=== PATIENT | female | born 1955 | race Caucasian/White ===

== ENCOUNTER 2017-06-18 03:55 | Inpatient (IN) | payer OTHER ==
[2017-06-18] VITALS (7 sets, daily range): BP systolic 126–181; BP diastolic 42–76; BMI 21.0
[~2017-06-18] VITALS: Ht 149.9 cm; Wt 54.5 kg
--- NOTE | ~2017-06-18 | OP ---
PATIENT NAME: DEVIN FERNANDEZ MEDICAL RECORD: [id number] :51 LOCATION:[facility] ADMISSION DATE:06/18/17 SURGEON: AARON CASAREZ MD DATE OF OPERATION: 06/21/2017 SURGEON: Aaron Casarez MD MEDICAL OFFICE WORKER: TENZIN Zapata OPERATION PERFORMED: Coronary artery bypass graft times 3 (left internal mammary to LAD, reverse saphenous vein from aorta to ramus intermedius and from aorta to obtuse marginal). PREOPERATIVE DIAGNOSES: Coronary artery disease with acute coronary syndrome and unstable angina, atrial fibrillation. POSTOPERATIVE DIAGNOSES: Coronary artery disease with acute coronary syndrome and unstable angina, atrial fibrillation. ANESTHESIA: General endotracheal anesthesia. ESTIMATED BLOOD LOSS: Total cardiopulmonary bypass with 2 packed red blood cells due to preoperative anemia and Cell Saver re-transfusion. COMPLICATIONS: ST elevation and hypotension after closing the chest, after the chest was reopened responded with epinephrine with hypertension, no further recurrence and ST segments returned to normal. All grafts were normal. Doppler signals were normal in the grafts. A chest tube was repositioned in case it was causing any obstruction. SPECIMENS: None. CONDITION: Stable. DISPOSITION: ICU. OPERATIVE FINDINGS: 1. Good quality greater saphenous vein harvested from the left leg from mid calf upwardly using bridging incisions. 2. Small but normal internal mammary for the ladies's size about a 1.5-2 mm mammary which was a good match for 1.5 mm LAD with good Doppler flow after anastomosis and after separation from cardiopulmonary bypass after reopening the chest. 3. The ramus intermedius was a 1.5 mm vessel. 4. The obtuse marginal was a 1.5 mm vessel. 5. The patient had a small but normal appearing heart with good contractility. Transesophageal echocardiography was normal. OPERATIVE INDICATION: Patient with a history of dyspnea on exertion, had atrial fibrillation following esophagoscopy to remove impacted food and underwent cardiac catheterization with severe multivessel coronary artery disease and a left dominant system. DESCRIPTION OF PROCEDURE: The patient was brought to the operating suite. General anesthesia was obtained. The patient was prepped and draped. First, OPERATIVE REPORT [id number] DEVIN FERNANDEZ greater saphenous vein was harvested from the left thigh and upper leg. Utilizing bridging incision, side branches were clipped, vessel was removed, perfused and hemostasis was ensured. The leg was then closed in 2 layers. Median sternotomy incision was made. Subcutaneous tissue was divided with electrocautery. Sternum was divided with a saw. The left hemisternum was elevated. Left pleural cavity was entered. Left internal mammary artery and vein were taken down as a pedicle graft. Sternal retractor was placed. Pericardium was opened. Heparin was given. The aorta was cannulated between concentric pursestrings. Dual-stage venous cannula was inserted. The internal mammary was clipped distally, made ready for anastomosis. The patient was placed on cardiopulmonary bypass after activated clotting time was appropriately elevated. The sites for distal anastomosis were selected. A cross-clamp was placed. Cardioplegia was given antegrade and this was repeated at 10-15 minute intervals including down the completed vein grafts. Distal anastomosis and proximal anastomoses were performed in standard technique. Aortic root was vented by removing the cross-clamp, tying the proximal anastomosis, deairing the vein graft and restoring flow. Proximal and distal anastomotic sites were inspected for leak. Good Doppler signals were noted. The patient was fully rewarmed, weaned off cardiopulmonary bypass and was stable. The patient was decannulated. Aortic cannulation site was oversewn with a pledgeted suture. Thorough irrigation was undertaken. All grafts lay appropriately. Protamine was given. Drains were placed with #1 Duy drain and one 28-Lao chest tube in the mediastinum and one Duy drain in the left pleural cavity. Pericardial fat was loosely reapproximated. Left chest was evacuated and irrigated. The sternum was closed with wires. After the chest was closed, the patient had some hypotension and ST elevation. Therefore, the chest was reopened. Pericardial fat sutures were removed. The grafts lay appropriately. Doppler signals were excellent with good diastolic flow and no evidence of impingement or twisting of the graft. STs returned to normal after epinephrine and some hypertension. The chest tube was repositioned slightly inferiorly. Ventricular pacing wires were placed. The pericardial fat was again approximated. The sternum was closed without difficulty. Fascia was closed. Subcutaneous tissue was closed. Skin was closed. Dressing was placed and the patient taken to ICU in stable condition. TRANSINT:[id number] Voice Confirmation ID: [id number] DOCUMENT ID: [id number] AARON CASAREZ MD at 0619 CC: SHANTHI COLLADO MD [id number] DICTATION DATE: 06/21/17 190 SLIDING JOINT MAKER: 06/22/177 ADM IN [facility] [address] [id number]
--- NOTE | ~2017-06-18 | HEMODYNAMI ---
PATIENT:DEVIN FERNANDEZ MEDICAL RECORD: [id number] : 51 LOCATION:[facility] ADMISSION DATE: 06/18/17 Generatedon:06/19/20179:43 Patient name: DEVIN FERNANDEZ Patient #: [id number] SSN: DO B: 1955 Date of study: 06/19/2017 Page: Of Hemodynamic Procedure Report Patient Data Patient Demographics Procedure consent was obtained First Name: DEVIN Gender: Female Last Name: REBECCA : 1955 Middle Initial: E Age: 62 year(s) Patient #: [id number] Race: Unknown Additional ID: [id number] Contact details [address]: [address] [place] [address] State: [place] City: [place] Zip code: [address] Past Medical History Allergies: No known allergies Admission Admission Data Admission Date: 06/18/2017 Admission Time: 3:55 Room #: 2209 Procedure Procedure Types Cath Procedure Diagnostic Procedure [facility] w/Coronaries Sedation Charges Moderate Sedation up to 15 minutes Peripheral Cath Diagnostic Procedure Cath Peripheral Fiqni-Yzexiko-Gox-Off Procedure Description Procedure Date Procedure Date: 06/19/2017 Procedure Start Time: 9:16 Procedure End Time: 9:40 Procedure Staff Name Function Benedicto Carrillo MD Performing Physician Ephraim Hanson RN Nurse Imelda Powell RT Scrub Kaur Huynh RT Monitor Procedure Data Cath Procedure Fluoroscopy Diagnostic fluoroscopy Total fluoroscopy Time: 3.3 time: 3.3 min min Diagnostic fluoroscopy Total fluoroscopy dose: 306 dose: 306 mGy mGy Contrast Material Contrast Material Type Amount (ml) Isovue 300 108 Entry Location Entry Primary Successful Side Size Upsize Upsize Entry Closure Succes sful Closure Location (Fr) 1 (Fr) 2 (Fr) Remarks Device Remarks Femoral Right 5 Fr Exoseal artery Femoral Left 5 Fr Exoseal artery Estimated blood loss: 5 ml Diagnostic catheters Device Type Used For End Catheter Placement MULTIPACK JL 4.0 5Fr Procedure catheter MULTIPACK JL 4.0 5Fr Left Coronary catheter Angiography MULTIPACK 3DRC 5Fr Right Coronary catheter Angiography MULTIPACK Pigtail 5 Fr LV Angiography catheter MULTIPACK Pigtail 5 Fr Abdominal catheter aortogram with runoff Procedure Complications No complications Procedure Medications Medication Administration Route Dosage Oxygen NC 2 l/min Heparin Flush Bag added to field 2 bags (1000units/500ml NS) 0.9% NaCl I.V. 100 ml/hr Benadryl I.V. 50 mg Fentanyl I.V. 50 mcg Versed I.V. 1 mg Fentanyl I.V. 50 mcg Versed I.V. 1 mg Hemodynamics Rest Heart Rate: 83 (bpm) Pressure Samples Time Site Value (mmHg) Purpose Heart Use Rate(bpm) 9:30 AO 11/7(8) Snapshot 95 9:30 AO 119/56(55) Snapshot 128 9:31 LV 14/10,12 Snapshot 129 9:32 LV 176/17,20 EDP 132 9:32 AO 158/60(107) Pullback 129 Gradients Valve Time Site Site 2 Mean SEP/DFP Peak To Heart Use 1 (mmHg) (sec/min) Peak Rate (mmHg) (bpm) Aortic 9:32 LV AO 129 158/60(107) Snapshots Pre Cath Intra NCS Post Cath Vital Signs Time Heart Resp SPO2 etCO2 NIBP (mmHg) Rhythm Pain Sedation Rate (ipm) (%) (mmHg) Status Level (bpm) 8:59:33 87 16 0 186/79(150) NSR 0 (11) 10(A) , No pain 9:04:17 86 16 0 176/79(133) NSR 0 (11) 10(A) , No pain 9:08:58 91 17 97 28.6 186/89(142) NSR 0 (11) 10(A) , No pain 9:13:43 93 18 96 32.4 180/77(128) NSR 0 (11) 10(A) , No pain 9:18:28 89 15 87 27.9 162/68(126) NSR 0 (11) 10(A) , No pain 9:23:08 88 16 98 17.3 151/76(115) NSR 0 (11) 10(A) , No pain 9:27:47 83 16 97 14.3 158/71(127) NSR 0 (11) 10(A) , No pain 9:32:23 139 14 96 9.8 156/83(145) NSR 0 (11) 10(A) , No pain 9:37:02 125 14 97 9 147/79(118) NSR 0 (11) 10(A) , No pain Medications Time Medication Route Dose Verified Delivered Reason Notes Effect iveness by by 9:04:22 Oxygen NC 2 Benedicto Ephraim Per l/min [facility] Don Hanson RN physician 9:04:33 Heparin Flush added 2 Benedicto Ephraim used for Bag to bags [facility] Don Hanson RN procedure (1000units/500ml field NS) 9:04:47 0.9% NaCl I.V. 100 Benedicto Alfredoy Per ml/hr [facility] Don Hanson RN physician 9:04:54 Benadryl I.V. 50 mg Benedicto [address]oy Per [facility] Don Hanson RN physician 9:12:57 Fentanyl I.V. 50 Benedicto Alfredoy for [facility] Hanson RN sedation 9:13:05 Versed I.V. 1 mg Benedicto Alfredoy for [facility] Don Hanson RN sedation 9:17:16 Fentanyl I.V. 50 Benedicto Ephraim for [facility] Don Hanson RN sedation 9:17:21 Versed I.V. 1 mg Benedicto [address]oy for [facility] Hanson RN sedation Procedure Log Time Note 8:37:43 Ephraim Hanson RN sent for patient. Start room use. 8:37:45 Time tracking: Call back 8:38:28 Plan of Care:Hemodynamics will remain stable., Cardiac rhythm will remain stable., Comfort level will be maintained., Respiratory function will remain adequate., Patient/ family verbilizes understanding of procedure., Procedure tolerated without complication., Recovers from procedure without complications.. 8:50:02 Patient received from Med/Surg to CCL 1 Alert and oriented. Tansferred to table in Supine position. 8:50:02 Warm blankets applied, and femi hugger turned on for patient comfort. 8:50:03 Correct patient and procedure confirmed by team. 8:50:07 Signed procedure consent form obtained from patient. 8:50:08 ECG and BP/O2 sat monitors applied to patient. 8:50:10 Full Disclosure recording started 8:58:42 Vital chart was started 8:58:49 Rhythm: sinus rhythm 8:58:57 H&P Date Dictated: 06/18/2017 Within 30 days and on chart., H&P Addendum completed by physician on day of procedure. (MUST COMPLETE FOR ALL OUTPATIENTS). 8:58:58 Pre-procedure instructions explained to patient. 8:58:59 Pre-op teaching completed and patient verbalized understanding. 8:59:01 Family in patients room. 8:59:02 Patient NPO since Midnight. 8:59:09 Patient allergic to No known allergies 8:59:11 Is the patient allergic to Iodine/contrast media? No. 8:59:13 Is patient on blood thinner?No 8:59:25 Patient diabetic? No. 8:59:34 Previous problem with sedation/anesthesia? No ? 8:59:35 Snore? Yes 8:59:36 Sleep apnea? No 8:59:38 Deviated septum? No 8:59:38 Opens mouth fully? Yes 8:59:39 Sticks out tongue? Yes 8:59:41 Airway obstruction? No ? 8:59:42 Dentures? No ? 9:00:57 Pre procedure: right dorsailis pedis pulse 2+ Normal; easily identifiable; not easily obliterated 9:01:00 Modified Nnamdi's test Ulnar > 7 seconds. 9:01:03 Patient pain scale 0/10 ?. 9:01:09 IV patent on arrival in left forearm with 0.9% NaCl at KVO. 9:01:12 Lab results completed and on chart. 9:01:16 Right groin area was prepped with chlora-prep and draped in sterile fashion 9:02:07 IV Extension Set opened to sterile field. 9:03:09 Baseline sample Acquired. 9:03:11 Alarms reviewed by R. N. 9:03:11 Sharps counted by scrub and verified by R.N. 9:04:19 Use device set Femoral Dx 9:04:20 ACIST Syringe (81376) opened to sterile field. 9:04:21 Bag Decanter (2002S) opened to sterile field. 9:04:21 Medline Cath Pack ([id number]) opened to sterile field. 9:04:22 Oxygen 2 l/min NC was administered by Ephraim Hanson RN; Per physician; 9:04:22 SHEATH 5FR Byron (ZLQ854) opened to sterile field. 9:04:22 DIAGNOSTIC WIRE .035 260cm J wire (453412) opened to sterile field. 9:04:23 ACIST Hand Control (19750) opened to sterile field. 9:04:24 ACIST Manifold (86735) opened to sterile field. 9:04:24 DIAGNOSTIC Multipack 5Fr catheter set ([id number]) opened to sterile field. 9:04:25 Tegaderm 4 x 4 (1626W) opened to sterile field. 9:04:26 PERCUTANEOUS ENTRY 19GA needle opened to sterile field. 9:04:33 Heparin Flush Bag (1000units/500ml NS) 2 bags added to field was administered by Ephraim Hanson RN; used for procedure; 9:04:47 0.9% NaCl 100 ml/hr I.V. was administered by Ephraim Hanson RN; Per physician; 9:04:54 Benadryl 50 mg I.V. was administered by Ephraim Hanson RN; Per physician; 9:06:06 Physician paged 9:09:21 Zero performed for pressure channel P1 9:12:15 Final Timeout: patient, procedure, and site verified with staff and physician. All members of the team are in agreement. 9:12:32 Right groin site verified by team. 9:12:35 Physical assessment completed. ASA score P 2 - A patient with mild systemic disease as per Benedicto Carrillo MD. 9:12:37 Sedation plan: IV Moderate Sedation Medication:Versed, Fentanyl 9:12:57 Fentanyl 50 mcg I.V. was administered by Ephraim Hanson RN; for sedation; 9:13:05 Versed 1 mg I.V. was administered by Ephraim Hanson RN; for sedation; 9:15:39 Procedure started. 9:16:15 Local anesthetic to right femoral artery with Lidocaine 2% by Benedicto Carrillo MD.INITIAL ACCESS ONLY 9:16:36 A 5 Fr sheath was inserted into the Right Femoral artery 9:17:16 Fentanyl 50 mcg I.V. was administered by Ephraim Hanson RN; for sedation; 9:17:21 Versed 1 mg I.V. was administered by Ephraim Hanson RN; for sedation; 9:19:22 A MULTIPACK JL 4.0 5Fr catheter was advanced over the wire and used for Procedure. unable to advance up RFA 9:20:18 GLIDE WIRE ANGLE 260cm (JY6635) opened to sterile field. 9:20:42 glide wire advanced. 9:24:53 Catheter removed. 9:25:02 Left groin area was prepped with chlora-prep and draped in sterile fashion 9:25:08 Local anesthetic to left femerol artery with Lidocaine 2% by Benedicto Carrillo MD.ADDITIONAL ACCESS 9:25:28 SHEATH 5FR Byron (BEZ882) opened to sterile field. 9:26:23 A 5 Fr sheath was inserted into the Left Femoral artery 9:26:43 A MULTIPACK JL 4.0 5Fr catheter was advanced over the wire and used for Left Coronary Angiography. 9:29:30 Catheter removed. 9:29:56 A MULTIPACK 3DRC 5Fr catheter was advanced over the wire and used for Right Coronary Angiography. 9:30:58 Catheter removed. 9:31:17 A MULTIPACK Pigtail 5 Fr catheter was advanced over the wire and used for LV Angiography. 9:32:13 LV gram done using CRUZ 9:32:15 LV hemodynamics recorded. 9:32:18 Injector settings: Ml/sec: 10, Volume: 20, 9:32:24 EF : 60 % 9:32:37 A MULTIPACK Pigtail 5 Fr catheter was advanced over the wire and used for Abdominal aortogram with runoff. 9:34:48 Catheter removed. 9:34:56 Sheath removed intact; hemostasis achieved with Exoseal to the Left Femoral artery. 9:35:01 Sheath removed intact; hemostasis achieved with Exoseal to the Right Femoral artery. 9:35:09 EXOSEAL 5Fr (EX500) opened to sterile field. 9:35:15 EXOSEAL 5Fr (EX500) opened to sterile field. 9:35:20 Procedure ended.(Physican Out) 9:36:01 Fluoroscopy time 03.30 minutes. 9:36:09 Tegaderm 4 x 4 (1626W) opened to sterile field. 9:36:16 Flurop Dose total: 306 9:36:16 Fluoroscopy dose: 306 mGy 9:36:28 Contrast amount:Isovue 300 108ml. 9:36:29 Sharps counted by scrub and verified by R.N. 9:36:30 Insertion/operative site no bleeding no hematoma. 9:36:33 Post-op/insertion site Left Femoral artery dressed using a 4 x 4 and Tegaderm. 9:36:44 Post right femoral artery:stable, clean and dry 9:36:49 Post-op/insertion site Right Femoral artery dressed using a 4 x 4 and Tegaderm. 9:36:53 Post right femoral artery:stable, clean and dry 9:37:08 Post Procedure Pulses reassessed and unchanged 9:37:11 Post-procedure physical assessment completed. ASA score P 2 - A patient with mild systemic disease as per Benedicto Carrillo MD. 9:37:13 Post procedure rhythm: unchanged. 9:37:16 Estimated blood loss: 5 ml 9:37:17 Post procedure instruction explained to patient.Patient verbalizes understanding. 9:37:19 Patient needs reinforcement of post procedure teaching. 9:37:29 Procedure type changed to Cath procedure, Diagnostic procedure, LHC, LHC w/Coronaries, Sedation Charges, Moderate Sedation up to 15 minutes, Peripheral Cath Diagnostic Procedure, Cath Peripheral, Hlxxx-Ovfeirw-Hyy-Off 9:38:54 Procedure Complication : No complications 9:38:57 See physician's report for complete and final results. 9:40:04 Procedure and supply charges have been captured, reviewed, submitted and are correct. 9:40:05 Vital chart was stopped 9:40:16 Report given to PCU. 9:40:27 Patient transfered to PCU with Bed. 9:40:37 Procedure ended. 9:40:37 Full Disclosure recording stopped 9:40:43 End room use (Document Last) Device Usage Item Name Manufacture Quantity Catalog Hospital Part Current Minimal Lot# / Number Charge Number Stock Stock Serial# Code IV Extension Hospira 1 86216-40 020473 16113 651459 5 Set ACIST Acist 1 43992 840252 347968 305873 20 Syringe Medical (87531) Systems Inc Bag Decanter Microtek 1 2001S 046591 35499 399690 5 () Medical Inc. Medline Cath Cardinal 1 [id number] 133571 34964 804774 5 Pack Health ([id number]) SHEATH 5FR Terumo 2 QBL945 460302 462844 357576 40 Byron (TAF248) DIAGNOSTIC St Prince 1 747074 152695 069912 028447 30 WIRE .035 260cm J wire (509605) ACIST Hand Acist 1 17868 653318 694806 299585 5 Control Medical (30157) Systems Inc ACIST Acist 1 27084 840376 078081 491512 5 Manifold Medical (01860) Systems Inc DIAGNOSTIC Cardinal 1 FI2724 720021 30877 061181 30 Multipack Health 5Fr catheter set (DG3952) Tegaderm 4 x 3M 2 1626W 720685 302396 202116 5 4 (1626W) PERCUTANEOUS Cook Medical 1 F55359 856593 247022 5 ENTRY 19GA needle MULTIPACK JL Cardinal 1 708868 5 4.0 5Fr Health catheter GLIDE WIRE Terumo 1 LO6748 593843 719631 002750 5 ANGLE 260cm (QX4024) MULTIPACK Cardinal 1 671993 5 3DRC 5Fr Health catheter MULTIPACK Cardinal 1 110895 5 Pigtail 5 Fr Health catheter EXOSEAL 5Fr Cardinal 2 EX500 759026 246481 907261 10 (EX500) Health Signature Audit [place] Stage Time Signature Unsigned Intra-Procedure 06/19/2017 Kaur 9:43:06 AM Counts RT(R) Signatures Monitor : Kaur Signature : Counts RT Date : Time : [id number] [place] [address]
--- NOTE | ~2017-06-18 | TEE ---
PATIENT:DEVIN FERNANDEZ MEDICAL RECORD: [id number] LOCATION:[place] [address] AGE OF PATIENT: 62 ADMISSION DATE: 06/18/17 SEX: F REFERRING PHYSICIAN: INTERPRETING PHYSICIAN: JARROD SUE MD TRANSESOPHAGEAL ECHOCARDIOGRAM KHOI CHARGE Y INDICATIONS: CABG PREMEDICATIONS: PATIENT'S RESPONSE PROCEDURE DOPPLER MEASUREMENTS: LVIT LA PA 171 RA LVOT 115 RVOT 128 Asc. Ao 172 AV Gradient Peak 11.77 AV Mean 6.39 AV Area 1.0 MV Gradient Peak 15.01 MV Mean 5.01 MV Area INTERPRETATION: Doppler: 2-D: EF 55 % PLUS COLOR FLOW DOPPLER MILD MR NORMAL SALINE STUDY: MISCELLANOUS: DIAGNOSIS: PLAN: Engineering Laboratory Technician:Richy Pierce Lead Java Software Engineer: Deniz CHAVIRA COMMENTS: DATE OF SERVICE: 06/21/2017 PROCEDURE: Transesophageal echo evaluation of valvular structures during bypass surgery. FINDINGS: 1. Left ventricular chamber size is within normal limits. Left ventricular systolic function is normal. Overall ejection fraction estimated 55%. 2. Left atrium, right atrium, and right ventricular chamber sizes are within TRANSESOPHAGEAL ECHOCARDIOGRAM REPORT [id number] DEVIN FERNANDEZ normal limits. 3. Valvular structures have normal structure and motion. 4. Doppler interrogation only reveals mild mitral regurgitation. No other valvular insufficiency or stenosis. 5. No evidence of pericardial effusion or left ventricular thrombus. TRANSINT:[id number] Voice Confirmation ID: [id number] DOCUMENT ID: [id number] at 1153 CC: [id number] DICTATION DATE: 06/22/17 1227 FREIGHT BROKER AGENT: 06/23/17 0732 [place] [address]
--- NOTE | ~2017-06-18 | EC ---
PATIENT:DEVIN FERNANDEZ DATE OF SERVICE: 06/18/17 SEX: F MEDICAL RECORD: [id number] DATE OF : [birth year] LOCATION:[place] [address] AGE OF PATIENT: 62 ADMISSION DATE: 06/18/17 REFERRING PHYSICIAN: INTERPRETING PHYSICIAN: SHANTHI COLLADO MD ECHOCARDIOGRAM REPORT ECHO CHARGES 4 ECHO COMPLETE CLINICAL DIAGNOSIS: AFIB/VALVULAR DISEASE ECHOCARDIOGRAPHIC MEASUREMENTS (adult normal given) AC root (d.<3.7cm) 2.3 cm LV Septum d (<1.2 cm> 1.2 cm Valve Excursion 1.0 cm LV Septum (systole) 1.4 cm Left Atria (s.<4.0cm> 2.8 cm LVPW d(<1.2cm) 1.4 cm RV (d.<2.3cm) 2.4 cm LVPW (sytole) 1.5 cm LV diastole(<5.6CM) 3.9 cm MV E-F(>70mm/sec) cm LV systole 3.1 cm LVOT Diameter 1.4 cm MV exc.(>10mm) 1.2 cm Est.ejection fraction (50-75%) % Pericardial Effusion N DOPPLER: LVIT cm/sec A cm/sec E cm/sec LA cm/sec RVSP 41 mmHg LVOT 115 cm/sec AOP1/2T m/s Asc. Ao 172 cm/sec RVOT 128 cm/sec RA cm/sec PA 171 cm/sec AV Gradient Peak 11.77mmHg AV Mean 6.39 mmHg AV Area 1.0 cm MV Gradient Peak 15.01mmHg MV Mean 5.01 mmHg MV Area cm COMMENTS: Machine Bunch Maker: 2 TUSHAR CHAVIRA Associate Project Manager: 3 Dr. Pierce TAPE# PACS DATE OF SERVICE: 06/19/2017 Adequate 2D echo, color flow and spectral Doppler, and M-mode. Borderline LVH. LV internal dimensions are normal. Difficult to fully assess focal wall motion from views present secondary to atrial fibrillation and variable R-R intervals. Overall LV function appears normal. EF is greater than 55%. Aortic valve sclerosis without stenosis by Doppler interrogation. The left atrium is normal at 3.8 cm. Mitral valve shows no prolapse. Trace MR. Right-sided chamber grossly normal. Trace TR. ECHOCARDIOGRAM REPORT [id number] DEVIN FERNANDEZ TRANSINT:[id number] Voice Confirmation ID: [id number] DOCUMENT ID: [id number] 06/27/2017 Edited to correct date of service, dmm. SHANTHI COLLADO MD at 1030 CC: [id number] DICTATION DATE: 06/20/17 1309 ORTHOTIC/PROSTHETIC PRACTITIONER: 06/20/17 1335 DIS IN 06/27/17 [place] [id number]
--- NOTE | ~2017-06-18 | OP ---
PATIENT NAME: DEVIN FERNANDEZ MEDICAL RECORD: [id number] :51 LOCATION:[facility] ADMISSION DATE:06/18/17 SURGEON: SHANTHI COLLADO MD DATE OF OPERATION: 06/19/2017 PROCEDURE: Left heart catheterization, selective coronary angiography, plus aortofemoral runoff. CATHETERS: A 5-Serbian sheath, 5/4 left and right Josh, 5/4 pig. Procedures was well tolerated. The patient returned to larose, sheath removed on both sides, and ExoSeal on both sides. FINDINGS: Left ventriculography in 30-degree CRUZ view. Normal wall motion, normal systolic function. CORONARY ANATOMY. LEFT MAIN: Left main is free of disease. LAD: Has a true ostial stenosis of better than 90% with good target distally. There is a true ramus branch and 90% ostial stenosis with good target distally. CIRCUMFLEX: Has 80% stenosis. Distal left dominant system. RIGHT CORONARY ARTERY: Rudimentary giving rise to an RV branch. Due to difficulty and totally occluded iliac on sheath injection, the pigtail catheter was pulled to the level of the renal arteries. Findings as follows; abdominal aorta shows diffuse atherosclerotic debris, no evidence of dissection or aneurysm. 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 Superficial femoral itself is free of disease with 1-vessel runoff. Left system of the left iliac shows 80-90% stenosis fairly discrete and the femoral system itself is free of significant disease with good 2-vessel runoff distally. IMPRESSION: Multivessel coronary artery disease, probably best served with coronary artery bypass grafting given the location of ostial ramus and LAD. Dr. Bob will be consulted for that purpose. TRANSINT:[id number] Voice Confirmation ID: [id number] DOCUMENT ID: [id number] SHANTHI COLLADO MD at 0919 CC: [id number] DICTATION DATE: 06/19/17 09 MANAGER SERVICING: 06/19/17 1327 ADM IN [place] [address] [place] [address]
--- NOTE | ~2017-06-18 | CN ---
PATIENT NAME:DEVIN FERNANDEZ MEDICAL RECORD: [id number] : 51 LOCATION:[facility] ADMIT DATE: 06/18/17 ACCOUNT: [id number] CONSULTING PHYSICIAN: SHANTHI COLLADO MD REFERRING PHYSICIAN: BOUCHRA JOYCE MD DATE OF CONSULTATION: 06/18/2017 HISTORY OF PRESENT ILLNESS: A 62-year-old female with no known history of coronary artery disease. She has a history of hypertension, actually had EGD for retained food bolus, had an episode of atrial fibrillation, nonspecific ST-T changes with rapid ventricular response; however, had good elevation and cardiac enzymes as well with a troponin at this point in time being 3. No symptomatology. He does have a family history of coronary artery disease. Cholesterol level has been normal in a fasting state. We are asked to see concerning cardiovascular status. PAST MEDICAL HISTORY: History of hypertension. ALLERGIES: None known. MEDICATIONS: Typically include Zantac 150 p.o. daily, Mobic 7.5 p.o. daily, Xanax 0.25 t.i.d., aspirin 81 every day, lisinopril 2.5 every day, and DuoNeb q.6 hours. SOCIAL HISTORY: Works at [employer], she easily takes care of her ADLs. No set exercise program. REVIEW OF SYSTEMS: The patient reports easy bruising but reports no swollen glands. The patient reports no fever, no night sweats, no significant weight gain, no significant weight loss. No significant exercise tolerance. The patient reports no dry eyes, no irritation, no vision change. Patient reports no difficulty hearing and no ear pain. Patient reports no frequent nose bleeds or nose and sinus problems. Patient reports on arm pain on exertion. No shortness of breath while lying down. No history of heart murmur. Patient reports no cough, no wheezing or coughing up blood. Patient reports no abdominal pain, no vomiting. Normal appetite. No diarrhea and not vomiting blood. No nausea and no constipation. Patient reports no incontinence. No difficulty urinating. No hematuria. No increased frequency. Patient reports no muscle aches. No weakness, no arthralgias, no back pain. No swelling of the extremities. Patient reports no abnormal mole, no jaundice, no rashes. Reports no loss of consciousness. No weakness and no numbness. No seizures, dizziness, or headaches. The patient reports no depression, no sleep disturbance, feeling safe in a relationship and no alcohol abuse. Patient reports on fatigue. Reports no runny nose or sinus pressure. No itching, no hives, and no frequent sneezing. PHYSICAL EXAMINATION: GENERAL: Pleasant female in no acute distress, appears stated age. VITAL SIGNS: Blood pressure 181/64, pulse 91 and regular. HEENT: Normocephalic, atraumatic. NECK: No bruits noted. HEART: Regular, II/ systolic ejection murmur. LUNGS: Good air excursion. ABDOMEN: Soft, nontender. EXTREMITIES: Pulses 2+ with no edema. CONSULT REPORT [id number] DEVIN FERNANDEZ IMPRESSION: Acute coronary syndrome/non-ST elevation myocardial infarction in the face of atrial fibrillation; however, given age, and family history of coronary artery disease, I need to rule out obstructive etiology. PLAN: For diagnostic angiography, intervention based on above. TRANSINT:[id number] Voice Confirmation ID: [id number] DOCUMENT ID: [id number] SHANTHI COLLADO MD at 0919 CC: [id number] DICTATION DATE: 06/18/17 1410 GAME PRODUCER: 06/18/17 2310 ADM IN [place] [id number] [place] [address]
[2017-06-18] MEDS ORDERED: MOBIC7.5 MG (05:45)
[2017-06-18] MEDS ORDERED: LISINOPRIL2.5 MG PO (05:47)
[2017-06-18] MEDS ORDERED: ASPIRIN81 MG PO (05:48)
[2017-06-18] MEDS ORDERED: IPRAT-ALBUT 0.5-3 ML UPD (05:48)
[2017-06-18] MEDS ORDERED: ZANTAC150 MG PO (05:49)
[2017-06-18] MEDS ORDERED: CHONDROITIN (05:50)
[2017-06-18] MEDS ORDERED: XANAX0.25 MG PO (05:51)
[2017-06-18 12:43] LABS: CKMB 11.4 U/L (0.0-3.6); CREATINE KINASE 211 UL (21-215)
[2017-06-18 12:51] LABS: TROPONIN-I 3.034 ng/mL (0.000-0.060)
[2017-06-18 15:54] LABS: BASOPHILS 0.5 % (0-2); EOSINOPHILS 2.5 % (0-7); HEMATOCRIT 35.7 % (36.0-48.0); HEMOGLOBIN 11.2 g/dL (12-16); IMMATURE GRANULOCYTES 0.3 % (0-5); LYMPHOCYTES 26.4 % (15-50); MCH 28.9 pg (26.0-34.0); MCHC 31.4 g/dL (31.0-37.0); MEAN PLATELET VOLUME 10.9 fL (7.4-10.4); MONOCYTES 6.8 % (2-11); NEUTROPHILS 63.5 % (40-80); PLATELET COUNT 293 10x3/uL (130-400); RBC 3.88 10x6/uL (4.00-5.40); WBC 13.3 10x3/uL (4.8-10.8)
[2017-06-18 16:06] LABS: ANION GAP 14.6 mmol/L (8-16); CALCIUM 9.2 mg/dL (8.5-10.1); CARBON DIOXIDE 23.4 mmol/L (21.0-32.0); CREATININE - SERUM 0.9 mg/dL (0.6-1.3)
[2017-06-18 19:25] LABS: CKMB 5.8 U/L (0.0-3.6); CREATINE KINASE 149 UL (21-215)
[2017-06-19] VITALS: BP 123/42
[2017-06-19 00:23] LABS: CKMB 3.4 U/L (0.0-3.6); CREATINE KINASE 119 UL (21-215)
[2017-06-19 04:00] VITALS: BP 171/61
[2017-06-19 05:03] LABS: BASOPHILS 0.6 % (0-2); EOSINOPHILS 4.3 % (0-7); HEMATOCRIT 33.9 % (36.0-48.0); HEMOGLOBIN 10.5 g/dL (12-16); IMMATURE GRANULOCYTES 0.4 % (0-5); LYMPHOCYTES 30.5 % (15-50); MCH 28.5 pg (26.0-34.0); MCV 91.9 fL (80.0-100.0); MEAN PLATELET VOLUME 11.2 fL (7.4-10.4); NEUTROPHILS 55.2 % (40-80); PLATELET COUNT 290 10x3/uL (130-400); RBC 3.69 10x6/uL (4.00-5.40); RDW 12.9 % (11.5-14.5); WBC 12.5 10x3/uL (4.8-10.8)
[2017-06-19 05:29] LABS: CALC OSMOLALITY 282 mosm/kg (275-300); CALCIUM 8.4 mg/dL (8.5-10.1); CARBON DIOXIDE 22.7 mmol/L (21.0-32.0); CHLORIDE - SERUM 106 mmol/L (98-107); GLUCOSE 97 mg/dL (74-106); POTASSIUM - SERUM 3.2 mmol/L (3.5-5.1); SODIUM 141 mmol/L (136-145); UREA NITROGEN 17 mg/dL (7-18)
[2017-06-19 05:30] LABS: CREATININE - SERUM 0.6 mg/dL (0.6-1.3); eGFR NON AFRICAN AMERICAN > 90 mL/min (90-120)
[2017-06-19 08:24] VITALS: BP 163/69
[2017-06-19 13:10] VITALS: BP 188/105
[2017-06-19 15:55] VITALS: BP 189/75
[2017-06-19 20:15] VITALS: BP 129/67
[2017-06-20] VITALS (10 sets, daily range): BP systolic 104–164; BP diastolic 44–93; Ht 149.9 cm; Wt 54.5 kg
[2017-06-20 06:57] LABS: BASOPHILS 0.5 % (0-2); EOSINOPHILS 2.4 % (0-7); HEMATOCRIT 32.3 % (36.0-48.0); HEMOGLOBIN 10.2 g/dL (12-16); IMMATURE GRANULOCYTES 0.3 % (0-5); LYMPHOCYTES 21.4 % (15-50); MCH 28.5 pg (26.0-34.0); MCHC 31.6 g/dL (31.0-37.0); MCV 90.2 fL (80.0-100.0); MONOCYTES 8.7 % (2-11); NEUTROPHILS 66.7 % (40-80); PLATELET COUNT 295 10x3/uL (130-400); RBC 3.58 10x6/uL (4.00-5.40); RDW 12.9 % (11.5-14.5); WBC 13.6 10x3/uL (4.8-10.8)
[2017-06-20 07:06] LABS: CALC OSMOLALITY 277 mosm/kg (275-300); CALCIUM 8.6 mg/dL (8.5-10.1); CARBON DIOXIDE 24.8 mmol/L (21.0-32.0); CHLORIDE - SERUM 106 mmol/L (98-107); CREATININE - SERUM 0.6 mg/dL (0.6-1.3); GLUCOSE 94 mg/dL (74-106); POTASSIUM - SERUM 3.5 mmol/L (3.5-5.1); SODIUM 140 mmol/L (136-145); eGFR NON AFRICAN AMERICAN > 90 mL/min (90-120)
[2017-06-20 07:17] LABS: UREA NITROGEN 9 mg/dL (7-18)
[2017-06-20 10:47] LABS: INR 1.13 (0.85-1.17); PROTIME 14.1 SECONDS (11.6-15.0)
[2017-06-20 11:28] LABS: ALBUMIN 3.1 g/dL (3.4-5.0); ALKALINE PHOSPHATASE 60 U/L (46-116); ALT (SGPT) 17 U/L (10-68); CALC OSMOLALITY 276 mosm/kg (275-300); CARBON DIOXIDE 27.7 mmol/L (21.0-32.0); CHLORIDE - SERUM 104 mmol/L (98-107); CHOLESTEROL, TOTAL 225 mg/dL (0-200); CREATININE - SERUM 0.6 mg/dL (0.6-1.3); GLUCOSE 100 mg/dL (74-106); PHOSPHOROUS 2.8 mg/dL (2.5-4.9); POTASSIUM - SERUM 3.7 mmol/L (3.5-5.1); PROTEIN - SERUM 6.8 g/dL (6.4-8.2); SODIUM 139 mmol/L (136-145); THYROID STIMULATING HORMONE 0.46 uIU/mL (0.36-3.74); UREA NITROGEN 9 mg/dL (7-18); URIC ACID 2.6 mg/dL (2.6-7.2); eGFR NON AFRICAN AMERICAN > 90 mL/min (90-120)
[2017-06-20 12:55] LABS: APPEARANCE SLT CLOUDY (CLEAR); BACTERIA MODERATE /hpf (NONE SEEN); BILIRUBIN NEGATIVE (NEGATIVE); COLOR YELLOW (YELLOW); EPITHELIAL CELLS RARE /hpf (0-5); GLUCOSE NEGATIVE (NEGATIVE); KETONE NEGATIVE (NEGATIVE); NITRITE NEGATIVE (NEGATIVE); PROTEIN NEGATIVE (NEGATIVE); RED CELLS - URINE RARE /hpf (0-5); UROBILINOGEN NORMAL (NORMAL)
[2017-06-21] VITALS (40 sets, daily range): BP systolic 91–158; BP diastolic 40–85
[2017-06-21 05:29] LABS: BASOPHILS 0.5 % (0-2); EOSINOPHILS 3.4 % (0-7); HEMATOCRIT 31.7 % (36.0-48.0); HEMOGLOBIN 10.1 g/dL (12-16); IMMATURE GRANULOCYTES 0.3 % (0-5); LYMPHOCYTES 24.3 % (15-50); MCH 28.6 pg (26.0-34.0); MCHC 31.9 g/dL (31.0-37.0); MCV 89.8 fL (80.0-100.0); MEAN PLATELET VOLUME 10.8 fL (7.4-10.4); MONOCYTES 9.5 % (2-11); PLATELET COUNT 277 10x3/uL (130-400); RBC 3.53 10x6/uL (4.00-5.40); RDW 12.9 % (11.5-14.5); WBC 11.6 10x3/uL (4.8-10.8)
[2017-06-21 05:44] LABS: CALC OSMOLALITY 276 mosm/kg (275-300); CALCIUM 8.9 mg/dL (8.5-10.1); CARBON DIOXIDE 26.5 mmol/L (21.0-32.0); CHLORIDE - SERUM 103 mmol/L (98-107); CREATININE - SERUM 0.8 mg/dL (0.6-1.3); GLUCOSE 100 mg/dL (74-106); POTASSIUM - SERUM 3.3 mmol/L (3.5-5.1); SODIUM 139 mmol/L (136-145); UREA NITROGEN 11 mg/dL (7-18); eGFR NON AFRICAN AMERICAN 76 mL/min (90-120)
[2017-06-21 08:00] LABS: PLT FUNCT.(P2Y12) PLAVIX 340 PRU (194-418)
[2017-06-21 13:07] LABS: HEMATOCRIT 26.5 % (36.0-48.0); HEMOGLOBIN 8.8 g/dL (12-16); MCH 29.7 pg (26.0-34.0); MCHC 33.2 g/dL (31.0-37.0); MCV 89.5 fL (80.0-100.0); MEAN PLATELET VOLUME 10.9 fL (7.4-10.4); RBC 2.96 10x6/uL (4.00-5.40); RDW 12.7 % (11.5-14.5); WBC 22.8 10x3/uL (4.8-10.8)
[2017-06-21 13:11] LABS: APTT 34.3 SECONDS (22.8-39.4); CARBON DIOXIDE 22.3 mmol/L (21.0-32.0); CHLORIDE - SERUM 106 mmol/L (98-107); CREATININE - SERUM 0.6 mg/dL (0.6-1.3); SODIUM 142 mmol/L (136-145); UREA NITROGEN 11 mg/dL (7-18); eGFR NON AFRICAN AMERICAN > 90 mL/min (90-120)
[2017-06-21 13:15] LABS: CALC OSMOLALITY 286 mosm/kg (275-300); CALCIUM 6.8 mg/dL (8.5-10.1); GLUCOSE 193 mg/dL (74-106)
[2017-06-21 13:18] LABS: INR 1.84 (0.85-1.17); PROTIME 20.7 SECONDS (11.6-15.0)
[2017-06-22] VITALS (58 sets, daily range): BP systolic 94–144; BP diastolic 38–69
[2017-06-22 06:14] LABS: BASOPHILS 0.2 % (0-2); EOSINOPHILS 0.1 % (0-7); HEMOGLOBIN 10.5 g/dL (12-16); IMMATURE GRANULOCYTES 0.3 % (0-5); LYMPHOCYTES 8.1 % (15-50); MCH 29.3 pg (26.0-34.0); MCHC 32.8 g/dL (31.0-37.0); MCV 89.4 fL (80.0-100.0); MEAN PLATELET VOLUME 11.7 fL (7.4-10.4); MONOCYTES 8.2 % (2-11); NEUTROPHILS 83.1 % (40-80); PLATELET COUNT 128 10x3/uL (130-400); RDW 13.4 % (11.5-14.5); WBC 18.9 10x3/uL (4.8-10.8)
[2017-06-22 06:19] LABS: RBC 3.58 10x6/uL (4.00-5.40)
[2017-06-22 06:32] LABS: ALKALINE PHOSPHATASE 30 U/L (46-116); ALT (SGPT) 20 U/L (10-68); CALCIUM 7.6 mg/dL (8.5-10.1); CARBON DIOXIDE 26.9 mmol/L (21.0-32.0); CHLORIDE - SERUM 107 mmol/L (98-107); CREATININE - SERUM 0.6 mg/dL (0.6-1.3); POTASSIUM - SERUM 3.9 mmol/L (3.5-5.1); SODIUM 142 mmol/L (136-145); UREA NITROGEN 12 mg/dL (7-18); eGFR NON AFRICAN AMERICAN > 90 mL/min (90-120)
[2017-06-22 06:35] LABS: ALBUMIN 2.3 g/dL (3.4-5.0); CALC OSMOLALITY 284 mosm/kg (275-300); GLUCOSE 131 mg/dL (74-106); PROTEIN - SERUM 4.8 g/dL (6.4-8.2)
[2017-06-23] VITALS (31 sets, daily range): BP systolic 95–149; BP diastolic 39–96
[2017-06-23 05:29] LABS: BASOPHILS 0.2 % (0-2); EOSINOPHILS 0.2 % (0-7); HEMATOCRIT 32.5 % (36.0-48.0); HEMOGLOBIN 10.6 g/dL (12-16); IMMATURE GRANULOCYTES 0.4 % (0-5); LYMPHOCYTES 12.8 % (15-50); MCH 29.6 pg (26.0-34.0); MCHC 32.6 g/dL (31.0-37.0); MCV 90.8 fL (80.0-100.0); MEAN PLATELET VOLUME 11.8 fL (7.4-10.4); MONOCYTES 8.9 % (2-11); NEUTROPHILS 77.5 % (40-80); PLATELET COUNT 144 10x3/uL (130-400); RBC 3.58 10x6/uL (4.00-5.40); RDW 13.3 % (11.5-14.5); WBC 18.6 10x3/uL (4.8-10.8)
[2017-06-23 05:40] LABS: ALBUMIN 2.2 g/dL (3.4-5.0); ALKALINE PHOSPHATASE 47 U/L (46-116); ALT (SGPT) 24 U/L (10-68); CALC OSMOLALITY 274 mosm/kg (275-300); CALCIUM 7.7 mg/dL (8.5-10.1); CARBON DIOXIDE 26.4 mmol/L (21.0-32.0); CHLORIDE - SERUM 101 mmol/L (98-107); CREATININE - SERUM 0.7 mg/dL (0.6-1.3); GLUCOSE 133 mg/dL (74-106); POTASSIUM - SERUM 3.8 mmol/L (3.5-5.1); PROTEIN - SERUM 5.6 g/dL (6.4-8.2); SODIUM 136 mmol/L (136-145); UREA NITROGEN 14 mg/dL (7-18); eGFR NON AFRICAN AMERICAN 89 mL/min (90-120)
[2017-06-24] VITALS (23 sets, daily range): BP systolic 116–162; BP diastolic 43–100
[2017-06-24 05:08] LABS: HEMOGLOBIN 9.6 g/dL (12-16); MCH 29.5 pg (26.0-34.0); MCV 92.3 fL (80.0-100.0); MEAN PLATELET VOLUME 11.8 fL (7.4-10.4); RBC 3.25 10x6/uL (4.00-5.40); RDW 13.3 % (11.5-14.5); WBC 14.4 10x3/uL (4.8-10.8)
[2017-06-24 05:30] LABS: ALBUMIN 1.9 g/dL (3.4-5.0); ALKALINE PHOSPHATASE 51 U/L (46-116); ALT (SGPT) 20 U/L (10-68); CALC OSMOLALITY 277 mosm/kg (275-300); CALCIUM 7.8 mg/dL (8.5-10.1); CARBON DIOXIDE 29.7 mmol/L (21.0-32.0); CHLORIDE - SERUM 103 mmol/L (98-107); GLUCOSE 98 mg/dL (74-106); POTASSIUM - SERUM 3.4 mmol/L (3.5-5.1); PROTEIN - SERUM 5.4 g/dL (6.4-8.2); SODIUM 139 mmol/L (136-145); UREA NITROGEN 13 mg/dL (7-18)
[2017-06-24 05:31] LABS: CREATININE - SERUM 0.5 mg/dL (0.6-1.3); eGFR NON AFRICAN AMERICAN > 90 mL/min (90-120)
[2017-06-25] VITALS (22 sets, daily range): BP systolic 126–170; BP diastolic 49–87
[2017-06-25 07:45] LABS: HEMATOCRIT 32.7 % (36.0-48.0); HEMOGLOBIN 10.4 g/dL (12-16); MCH 29.4 pg (26.0-34.0); MCHC 31.8 g/dL (31.0-37.0); MCV 92.4 fL (80.0-100.0); MEAN PLATELET VOLUME 11.4 fL (7.4-10.4); RBC 3.54 10x6/uL (4.00-5.40); RDW 13.3 % (11.5-14.5); WBC 14.5 10x3/uL (4.8-10.8)
[2017-06-25 08:01] LABS: ALBUMIN 2.2 g/dL (3.4-5.0); ALKALINE PHOSPHATASE 69 U/L (46-116); BILIRUBIN - TOTAL 0.46 mg/dL (0.2-1.3); CARBON DIOXIDE 28.8 mmol/L (21.0-32.0); CHLORIDE - SERUM 104 mmol/L (98-107); CREATININE - SERUM 0.6 mg/dL (0.6-1.3); GLUCOSE 94 mg/dL (74-106); PROTEIN - SERUM 5.9 g/dL (6.4-8.2); SODIUM 139 mmol/L (136-145); eGFR NON AFRICAN AMERICAN > 90 mL/min (90-120)
[2017-06-25 08:03] LABS: CALC OSMOLALITY 276 mosm/kg (275-300); UREA NITROGEN 9 mg/dL (7-18)
[2017-06-25 08:04] LABS: ALT (SGPT) 28 U/L (10-68); POTASSIUM - SERUM 4.4 mmol/L (3.5-5.1)
[2017-06-26] VITALS (22 sets, daily range): BP systolic 143–174; BP diastolic 45–68
[2017-06-26 05:20] LABS: HEMATOCRIT 30.9 % (36.0-48.0); HEMOGLOBIN 9.8 g/dL (12-16); MCH 29.2 pg (26.0-34.0); MCHC 31.7 g/dL (31.0-37.0); MEAN PLATELET VOLUME 10.8 fL (7.4-10.4); RBC 3.36 10x6/uL (4.00-5.40); RDW 13.3 % (11.5-14.5); WBC 13.2 10x3/uL (4.8-10.8)
[2017-06-26 05:52] LABS: ALKALINE PHOSPHATASE 63 U/L (46-116); ALT (SGPT) 29 U/L (10-68); BILIRUBIN - TOTAL 0.25 mg/dL (0.2-1.3); CALC OSMOLALITY 276 mosm/kg (275-300); CALCIUM 8.8 mg/dL (8.5-10.1); CARBON DIOXIDE 28.4 mmol/L (21.0-32.0); CHLORIDE - SERUM 104 mmol/L (98-107); CREATININE - SERUM 0.5 mg/dL (0.6-1.3); GLUCOSE 100 mg/dL (74-106); POTASSIUM - SERUM 4.3 mmol/L (3.5-5.1); PROTEIN - SERUM 5.6 g/dL (6.4-8.2); SODIUM 139 mmol/L (136-145); UREA NITROGEN 9 mg/dL (7-18); eGFR NON AFRICAN AMERICAN > 90 mL/min (90-120)
[2017-06-27] VITALS (12 sets, daily range): BP systolic 130–168; BP diastolic 53–61
[2017-06-27] MEDS ORDERED: HEMOCYTE PLUS C1 CAP PO (09:04)
[2017-06-27] MEDS ORDERED: LISINOPRIL2.5 MG PO (09:05)
[2017-06-27] MEDS ORDERED: LOPRESSOR25 MG PO (09:05)
[2017-06-27] MEDS ORDERED: CORDARONE200 MG PO ×2 (09:05→09:59)
[2017-06-27] MEDS ORDERED: COLACE100 MG PO (09:06)
[2017-06-27] MEDS ORDERED: SENOKOT-S TABLE1 TAB PO (09:06)
[2017-06-27] MEDS ORDERED: HYDROCODON-ACE1 EAC7 PO (09:07)
[2017-06-27] MEDS ORDERED: TOPROL XL25 MG PO (09:59)
== END 2017-06-27 11:45 | disposition home or self-care (01) | DRG 234 ==
LOC: D.CVICU 03:55 → D.MS 03:55 → D.M2 03:55 → D.CVICU 06-21 06:50
PROVIDERS: Internal Medicine Interventional Cardiology; Internal Medicine Nephrology; Thoracic Surgery (Cardiothoracic Vascular Surgery)
PROC: 4A023N7 Measurement of Cardiac Sampling and Pressure, Left Heart, Percutaneous Approach (ICD-10-PCS; 2017-06-19)
PROC: B2111ZZ Fluoroscopy of Multiple Coronary Arteries using Low Osmolar Contrast (ICD-10-PCS; principal; 2017-06-19 09:00)
PROC: B2151ZZ Fluoroscopy of Left Heart using Low Osmolar Contrast (ICD-10-PCS; 2017-06-19 09:00)
PROC: 021109W Bypass Coronary Artery, Two Arteries from Aorta with Autologous Venous Tissue, Open Approach (ICD-10-PCS; 2017-06-21)
PROC: 02100Z9 Bypass Coronary Artery, One Artery from Left Internal Mammary, Open Approach (ICD-10-PCS; 2017-06-21)
PROC: 06BP0ZZ Excision of Right Saphenous Vein, Open Approach (ICD-10-PCS; 2017-06-21)
PROC: 5A1221Z Performance of Cardiac Output, Continuous (ICD-10-PCS; 2017-06-21)
PROC: B245ZZ4 Ultrasonography of Left Heart, Transesophageal (ICD-10-PCS; 2017-06-21)
DX: I21.4 Non-ST elevation (NSTEMI) myocardial infarction (principal); I25.110 Atherosclerotic heart disease of native coronary artery with unstable angina pectoris; I48.91 Unspecified atrial fibrillation; I10 Essential (primary) hypertension; I24.8 Other forms of acute ischemic heart disease; K21.9 Gastro-esophageal reflux disease without esophagitis; E83.42 Hypomagnesemia; I95.81 Postprocedural hypotension; D64.9 Anemia, unspecified; Z86.73 Personal history of transient ischemic attack (TIA), and cerebral infarction without residual deficits

== ENCOUNTER → 2017-07-06 13:25 | Outpatient (CLI) | payer OTHER ==
[2017-06-20 11:09] VITALS: BMI 21.5
[~2017-07-06 13:25] MED LIST: ASPIRIN81 MG PO; CHONDROITIN; COLACE100 MG PO; CORDARONE200 MG PO; HEMOCYTE PLUS C1 CAP PO; HYDROCODON-ACE1 EAC7 PO; IPRAT-ALBUT 0.5-3 ML UPD; LISINOPRIL2.5 MG PO; LOPRESSOR25 MG PO; MOBIC7.5 MG; SENOKOT-S TABLE1 TAB PO; TOPROL XL25 MG PO; XANAX0.25 MG PO; ZANTAC150 MG PO
[2017-07-06 14:36] LABS: HEMATOCRIT 34.5 % (36.0-48.0); MCH 29.9 pg (26.0-34.0); MCHC 31.9 g/dL (31.0-37.0); MCV 93.8 fL (80.0-100.0); MEAN PLATELET VOLUME 10.2 fL (7.4-10.4); RBC 3.68 10x6/uL (4.00-5.40); RDW 14.1 % (11.5-14.5); WBC 10.8 10x3/uL (4.8-10.8)
[2017-07-06 14:57] LABS: ALBUMIN 3.1 g/dL (3.4-5.0); ANION GAP 15.3 mmol/L (8-16); BILIRUBIN - TOTAL 0.31 mg/dL (0.2-1.3); CALCIUM 9.5 mg/dL (8.5-10.1); CARBON DIOXIDE 26.5 mmol/L (21.0-32.0); CREATININE - SERUM 0.9 mg/dL (0.6-1.3); POTASSIUM - SERUM 4.8 mmol/L (3.5-5.1); PROTEIN - SERUM 6.7 g/dL (6.4-8.2)
== END | disposition home or self-care (01) ==
LOC: D.RAD 13:25
PROVIDERS: Thoracic Surgery (Cardiothoracic Vascular Surgery)
DX: J91.8 Pleural effusion in other conditions classified elsewhere (principal); D64.9 Anemia, unspecified

== ENCOUNTER → 2018-10-09 09:17 | Outpatient (CLI) | payer MEDICARE, BC ==
[2017-06-20 11:09] VITALS: BMI 21.5
--- NOTE | 2018-10-10 13:05 | EC ---
PATIENT:DEVIN FERNANDEZ DATE OF SERVICE: 10/09/18 SEX: F MEDICAL RECORD: [id number] DATE OF : 51 [facility] AGE OF PATIENT: 63 ADMISSION DATE: 10/09/18 REFERRING PHYSICIAN: INTERPRETING PHYSICIAN: SHANTHI COLLADO MD ECHOCARDIOGRAM REPORT ECHO CHARGES 4 ECHO COMPLETE Date: 10/09/18 CLINICAL DIAGNOSIS: H/O CAD/CABG/PVD/HTN ECHOCARDIOGRAPHIC MEASUREMENTS (adult normal given) AC root (d.<3.7cm) 2.2 cm LV Septum d (<1.2 cm> 0.7 cm Valve Excursion 1.2 cm LV Septum (systole) 1.0 cm Left Atria (s.<4.0cm> 3.9 cm LVPW d(<1.2cm) 0.7 cm RV (d.<2.3cm) 2.2 cm LVPW (sytole) 1.2 cm LV diastole(<5.6CM) 4.8 cm MV E-F(>70mm/sec) cm LV systole 3.2 cm LVOT Diameter 1.3 cm MV exc.(>10mm) cm Est.ejection fraction (50-75%) % DOPPLER: LVIT cm/sec A 115 cm/sec E 135 cm/sec LA cm/sec RVSP 38.3 mmHg LVOT 92.0 cm/sec AOP1/2T m/s Asc. Ao 147 cm/sec RVOT 60.0 cm/sec RA cm/sec PA 89.0 cm/sec AV Gradient Peak 8.6 mmHg AV Mean 4.6 mmHg AV Area 1.0 cm MV Gradient Peak 7.9 mmHg MV Mean 2.1 mmHg MV Area cm COMMENTS: OP - [employer] Attendant: 1 YURI LANDERSDSOE Software Support Technician: 3 Dr. Pierce TAPE# PACS Pericardial Effusion N DATE OF SERVICE: 10/09/2018 Adequate 2-D, color-flow and spectral Doppler, and M-mode. No LVH. LV internal dimensions are normal. LV is mildly globally hypo with EF at lower limits of normal to mildly reduced at 45% to 50%. Aortic valve sclerosis without stenosis by Doppler interrogation. Left atrium is normal at 3.9 cm. Mitral valve shows no prolapse. [id number] MR. Right-sided chambers are grossly normal. Mild TR. ECHOCARDIOGRAM REPORT [id number] DEVIN FERNANDEZ TRANSINT:[id number] Voice Confirmation ID: [id number] DOCUMENT ID: [id number] SHANTHI COLLADO MD at 1305 CC: [id number] DICTATION DATE: 10/09/18 1532 LOG CARRIER OPERATOR: 10/09/18 1716 DEP CLI 10/09/18 [place] [id number] [place] [id number]
== END | disposition home or self-care (01) ==
LOC: D.HCCARDIO 09:17
PROVIDERS: ATTEND Internal Medicine Interventional Cardiology
DX: I25.10 Atherosclerotic heart disease of native coronary artery without angina pectoris (principal)

== ENCOUNTER 2019-10-04 11:04 | Outpatient (CLI) | payer MEDICARE, BC ==
[~2019-10-04] VITALS: Ht 149.9 cm; Wt 57.7 kg
--- NOTE | ~2019-10-04 | HEMODYNAMI ---
PATIENT:DEVIN FERNANDEZ MEDICAL RECORD: [id number] : 51 LOCATION:[facility] ADMISSION DATE: 10/04/19 Generatedon:10/04/201914:21 Patient name: DVEIN FERNANDEZ Patient #: [id number] SSN: [id number] : 1955 Date of study: 10/04/2019 Page: Of Hemodynamic Procedure Report Patient Data Patient Demographics Procedure consent was obtained First Name: DEVIN Gender: Female Last Name: REBECCA : 1955 Middle Initial: EDWARDO Age: 64 year(s) Patient #: [id number] Race: SSN: [id number] Additional ID: [id number] Contact details Address: [address] [place] [address] State: [place] City: [place] Zip code: [address] Past Medical History Allergies: No known allergies Admission Admission Data Admission Date: 10/04/2019 Admission Time: 11:04 Arrival Date: 10/04/2019 Arrival Time: 13:30 Admit Source: Other Insurance Payor: Medicare HIC #: [id number] Height (in.): 58.66 BSA: 1.51 (m2) Height (cm.): 149 BMI: 25.67 (kg/m2) Weight (lbs.): 125.66 Weight (kg.): 57 Lab Results Lab Result Date: 10/04/2019 Lab Result Time: 0:00 CBC Name Units Result Min Max Hemoglobin g/dl 11.9 *-(----)-- 13.5 17.5 Procedure Procedure Types Cath Procedure Diagnostic Procedure Sedation Charges Moderate Sedation up to 15 minutes Peripheral Cath Diagnostic Procedure Manager Statistical Peripheral Procedures AFRO (Diagnostic) Procedure Description Procedure Date Procedure Date: 10/04/2019 Procedure Start Time: 14:04 Procedure End Time: 14:18 Procedure Staff Name Function Benedicto Carrillo MD Performing Physician Gina Blue RT Monitor Tarsha Hamilton RT Scrjanice Burleson RN Nurse Procedure Data Cath Procedure Fluoroscopy Diagnostic fluoroscopy Total fluoroscopy Time: 0.5 time: 0.5 min min Diagnostic fluoroscopy Total fluoroscopy dose: 62 dose: 62 mGy mGy Contrast Material Contrast Material Type Amount (ml) Isovue 300 47 Entry Location Entry Primary Successful Side Size Upsize Upsize Entry Closure Succes sful Closure Location (Fr) 1 (Fr) 2 (Fr) Remarks Device Remarks Femoral Left 5 Fr Exoseal artery Estimated blood loss: 5 ml Diagnostic catheters Device Type Used For End Catheter Placement DIAGNOSTIC UF 5Fr Multi-vessel catheter ([id number]) Angiography Procedure Complications No complications Procedure Medications Medication Administration Route Dosage Oxygen etCO2 Nasal cannula 2 l/min Lidocaine 2% added to field 20 Heparin Flush Bag added to field 2 bags (1000units/500ml NS) 0.9% NaCl I.V. 100 ml/hr Versed I.V. 1 mg Fentanyl I.V. 50 mcg Versed I.V. 1 mg Fentanyl I.V. 50 mcg Hemodynamics Rest BSA: 1.51 (m2) HGB: 11.9 (g/dl) O2 Consumption: Estimated: 152.44 (ml/min) O2 Co nsumption indexed: Estimated:100.95 (ml/min/m) Heart Rate: 91 (bpm) Snapshots Pre Cath Intra NCS Post Cath Vital Signs Time Heart Resp SPO2 etCO2 NIBP (mmHg) Rhythm Pain Sedation Rate (ipm) (%) (mmHg) Status Level (bpm) 13:55:03 81 16 96 24 Out of NSR 0 (11) 10(A) range , No pain 13:55:05 81 16 96 24 Out of NSR 0 (11) 10(A) range , No pain 13:59:03 84 12 97 31.5 201/85(140) NSR 0 (11) 10(A) , No pain 14:03:33 87 11 99 33 186/76(120) NSR 0 (11) 10(A) , No pain 14:07:29 84 16 100 32.2 169/74(134) NSR 0 (11) 9(A) , No pain 14:11:20 86 13 100 32.2 159/78(138) NSR 0 (11) 9(A) , No pain 14:15:11 86 15 99 36.7 150/77(125) NSR 0 (11) 10(A) , No pain Medications Time Medication Route Dose Verified Delivered Reason Notes Eff ectiveness by by 13:54:09 Oxygen etCO2 2 Benedicto Annie used for Nasal l/min St Don Burleson RN procedure cannula 13:54:15 Lidocaine 2% added 20ml Benedicto Benedicto for local to vial [facility] anesthetic field MD WELCH 13:54:21 Heparin Flush added 2 Benedicto Benedicto used for Bag to bags [facility] procedure (1000units/500ml field MD WELCH NS) 13:54:29 0.9% NaCl I.V. 100 Benedicto Juarezie Per ml/hr St Don Burleson RN physician 14:01:03 Versed I.V. 1 mg Benedicto [place] for [facility] Don Burleson RN sedation 14:01:09 Fentanyl I.V. [address] Benedicto Annie for mcg [facility] Don Burleson RN sedation 14:08:30 Versed I.V. 1 mg Benedicto [address] for [facility] Don Burleson RN sedation 14:08:33 Fentanyl I.V. 50 Benedicto Juarezie for [facility] St Don Burleson RN sedation Procedure Log Time Note 12:48:58 Diagnostic Cath Status : Elective 12:49:43 Informed consent obtained and on chart 12:51:57 Admit Source: Other 12:52:05 Arrival Date: 10/04/2019 1:30:00 PM 12:52:29 Insurance Payor : Medicare 12:53:57 Patient Height : 58.66 inches 12:54:01 Patient Weight : 125.66 lbs 12:55:05 Lab Result : Hemoglobin 11.9 g/dl 12:55:16 Procedure Status Peripheral. 12:55:19 Time tracking: Regular hours (M-F 7:00 - 5:00) 12:55:22 Plan of Care:Hemodynamics will remain stable., Cardiac rhythm will remain stable., Comfort level will be maintained., Respiratory function will remain adequate., Patient/ family verbilizes understanding of procedure., Procedure tolerated without complication., Recovers from procedure without complications.. 13:20:18 Meir Burleson RN sent for patient. Start room use. 13:44:18 H&P Date Dictated: 09/26/2019 Within 30 days and on chart., H&P Addendum completed by physician on day of procedure. (MUST COMPLETE FOR ALL OUTPATIENTS). 13:44:24 Patient allergic to No known allergies 13:45:58 Patient received from Pre/Post Procedure Room to CCL 2 Alert and oriented. Tansferred to table in Supine position. 13:46:00 Warm blankets applied, and femi hugger turned on for patient comfort. 13:46:01 Correct patient and procedure confirmed by team. 13:46:02 ECG and BP/O2 sat monitors applied to patient. 13:53:14 Vital chart was started 13:53:15 Baseline sample Acquired. 13:53:22 Rhythm: sinus tachycardia 13:53:23 Full Disclosure recording started 13:53:24 Pre-procedure instructions explained to patient. 13:53:26 Pre-op teaching completed and patient verbalized understanding. 13:53:28 Family in waiting room. 13:53:30 Patient NPO since Midnight. 13:53:31 Is the patient allergic to Iodine/contrast media? No. 13:53:32 Was the patient premedicated? Yes 13:54:09 Oxygen 2 l/min etCO2 Nasal cannula was administered by Meir Burleson RN; used for procedure; Verbal order read back and verified. 13:54:15 Lidocaine 2% 20ml vial added to field was administered by Benedicto Carrillo MD; for local anesthetic; Verbal order read back and verified. 13:54:21 Heparin Flush Bag (1000units/500ml NS) 2 bags added to field was administered by Benedicto Carrillo MD; used for procedure; Verbal order read back and verified. 13:54:29 0.9% NaCl 100 ml/hr I.V. was administered by Meir Burleson RN; Per physician; Verbal order read back and verified. 13:54:37 Is patient on blood thinner?No 13:54:38 Patient diabetic? No. 13:54:44 Previous problem with sedation/anesthesia? No ? 13:54:48 Snore? Yes 13:54:49 Sleep apnea? No 13:54:50 Deviated septum? No 13:54:51 Opens mouth fully? Yes 13:54:51 Sticks out tongue? Yes 13:55:01 Airway obstruction? Yes asthma 13:55:04 Dentures? No ? 13:55:08 Pre procedure: right dorsailis pedis pulse Doppler 13:55:15 Pre procedure: left dorsailis pedis pulse Doppler 13:55:17 Patient pain scale 0/10 ?. 13:55:25 IV patent on arrival in right forearm with 0.9% NaCl at [facility]. 13:55:27 Lab results completed and on chart. 13:55:35 Bilateral groins area was prepped with chlora-prep and draped in sterile fashion 13:55:36 Alarms reviewed by R. N. 13:55:36 Sharps counted by scrub and verified by R.N. 13:55:39 Physician arrived 13:55:39 --------ALL STOP TIME OUT------ 13:55:40 Final Timeout: patient, procedure, and site verified with staff and physician. All members of the team are in agreement. 13:55:42 Bilateral groins site verified by team. 13:55:47 Fire Safety Assessment: A--An alcohol-based skin anteseptic being used preoperatively., C--Open oxygen or nitrous oxide is being used., D--An ESU, laser, or fiber-optic light is being used. 13:55:49 Physical assessment completed. ASA score P 2 - A patient with mild systemic disease as per Benedicto Carrillo MD. 13:56:11 3a) 45-59 Moderately reduced kidney function. 13:56:45 Maximum allowable contrast dose (3.7 X eGFR X 0.75)163 ml. 13:56:49 Sedation plan: IV Moderate Sedation Medication:Versed, Fentanyl 13:56:57 Use device set CATH PACK 13:56:58 ACIST Syringe (06842) opened to sterile field. 13:56:59 ACIST Hand Control (75076) opened to sterile field. 13:56:59 ACIST Manifold (45002) opened to sterile field. 13:56:59 Medline Cath Pack ([id number]) opened to sterile field. 13:57:00 Bag Decanter () opened to sterile field. 13:57:00 EMERALD Guide Wire (663-201) opened to sterile field. 14:01:03 Versed 1 mg I.V. was administered by Meir Burleson RN; for sedation; Verbal order read back and verified. 14:01:09 Fentanyl 50 mcg I.V. was administered by Meir Burleson RN; for sedation; Verbal order read back and verified. 14:04:50 Procedure started. 14:04:55 Local anesthetic to left femerol artery with Lidocaine 2% by Benedicto Carrillo MD.INITIAL ACCESS ONLY 14:05:05 A 5 Fr sheath was inserted into the Left Femoral artery 14:08:30 Versed 1 mg I.V. was administered by Meir Burleson RN; for sedation; Verbal order read back and verified. 14:08:33 Fentanyl 50 mcg I.V. was administered by Meir Burleson RN; for sedation; Verbal order read back and verified. 14:09:04 A DIAGNOSTIC UF 5Fr catheter ([id number]) was advanced over the wire and used for Multi-vessel Angiography. 14:09:24 Abdominal angiogram w/ runoff was performed. 14:15:13 Injector settings: Ml/sec: 10, Volume: 20, 14:15:22 EXOSEAL 5Fr (EX500) opened to sterile field. 14:15:32 Sheath removed intact; hemostasis achieved with Exoseal to the Left Femoral artery. 14:15:33 Procedure ended.(Physican Out) 14:16:17 Fluoroscopy time 00.50 minutes. 14:16:23 Flurop Dose total: 62 14:16:23 Fluoroscopy dose: 62 mGy 14:16:58 Dose Area Product 5717 mGy/cm. 14:17:08 Contrast amount:Isovue 300 47ml. 14:17:12 Maximum allowable dose exceeded? No. 14:17:16 Sharps counted by scrub and verified by R.N. 14:17:24 Insertion/operative site no bleeding no hematoma. 14:17:28 Post-op/insertion site Left Femoral artery dressed using a 4 x 4 and Tegaderm. 14:17:30 Post Procedure Pulses reassessed and unchanged 14:17:33 Post procedure rhythm: unchanged. 14:17:36 Estimated blood loss: 5 ml 14:17:43 Post procedure instruction explained to patient.Patient verbalizes understanding. 14:17:44 Patient needs reinforcement of post procedure teaching. 14:18:12 Procedure type changed to Cath procedure, Diagnostic procedure, Sedation Charges, Moderate Sedation up to 15 minutes, Peripheral Cath Diagnostic Procedure, Manager Statistical Peripheral Procedures, AFRO (Diagnostic) 14:18:13 Procedure and supply charges have been captured, reviewed, submitted and are correct. 14:18:18 Procedure Complication : No complications 14:18:20 Vital chart was stopped 14:18:25 AFRO Findings: PVD: will discuss options w/ pt 14:18:28 Operative report dictated upon procedure completion. 14:18:28 See physician's report for complete and final results. 14:18:52 Report given to Pre/Post Procedure Room. 14:18:54 Patient transfered to Pre/Post Procedure Room with Stretcher. 14:18:57 Procedure ended. 14:18:57 Full Disclosure recording stopped 14:19:03 End room use (Document Last) Device Usage Item Name Manufacture Quantity Catalog Hospital Part Current Minimal L ot# / Number Charge Number Stock Stock Serial# Code ACIST Acist 1 76949 155115 348309 860045 20 Syringe Medical (42869) Systems Inc ACIST Hand Acist 1 41763 013507 041499 889828 5 Control Medical (44679) Systems Inc ACIST Acist 1 43036 455794 809231 116414 5 Manifold Medical (57013) Systems Inc Medline Medline 1 [id number] 558457 52135 709016 5 Cath Pack ([id number]) Bag Microtek 1 750276 13634 247900 5 Decanter Medical Inc. () EMERALD Cardinal 1 502-455 635467 317100 539706 5 Guide Wire Health (502455) DIAGNOSTIC Cardinal 1 [id number] 633764 203638 529543 10 UF 5Fr Health catheter ([id number]) EXOSEAL 5Fr Cardinal 1 EX500 429984 971799 701188 10 (EX500) Health Signature Audit [place] Stage Time Signature Unsigned Intra-Procedure 10/04/2019 Gina Blue 2:19:50 PM RT(R) Intra-Procedure 10/04/2019 Meir Burleson RN 2:20:17 PM Intra-Procedure 10/04/2019 Benedicto Kern 2:21:54 PM Don WELCH Signatures Performing Physician : Signature : Benedicto Carrillo MD Date : Time : Monitor : Gina Blue RT Signature : Date : Time : Nurse : Meir Burleson RN Signature : Date : Time : [place] [address] [facility] [place] [address]
--- NOTE | ~2019-10-04 | OP ---
PATIENT NAME: DEVIN FERNANDEZ MEDICAL RECORD: [id number] :51 LOCATION:D.CAT ADMISSION DATE: SURGEON: SHANTHI COLLADO MD DATE OF OPERATION: 10/04/2019 PROCEDURE: AFRO was performed via the left femoral artery approach. CATHETERS: A 5-Pakistani sheath, DESMOND catheter. The procedure was well tolerated. The patient returned to the larose, sheath removed. ExoSeal device placed. FINDINGS: The catheter was placed at the level of the renal arteries. Nonselective renal angiography shows no evidence of renal artery stenosis, either right or left. Next, runoff was performed. 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 Reconstitution of the superficial femoral system well at the pelvic rim. However, distal right after the trifurcation, there is poor runoff after the popliteal artery with minimal flow distally. Left iliac system: Left internal iliac shows about a 70% stenosis down to the femoral system. The superficial femoral system shows no significant stenosis; however, distally again the popliteal shows poor distal runoff with some collateralization distally. IMPRESSION: Severe diffuse distal disease, not much, appear to be poor candidate for long-term complete revascularization. We will ask Dr. Queen/Lisbeth for their opinion. I Doubt intervention to the left iliac would provide long-term improvement. Long-term medical management may be best option. TRANSINT:[id number] Voice Confirmation ID: [id number] DOCUMENT ID: [id number] SHANTHI COLLADO MD CC: [id number] DICTATION DATE: 10/04/19 1429 IRON WORKER APPRENTICE: 10/04/19 1559 [facility] [address] [place] [address]
[2019-10-04] MEDS ORDERED: FLOVENT HFA 11012 GM INH (11:59)
[2019-10-04] MEDS ORDERED: SINGULAIR10 MG PO (11:59)
[2019-10-04] MEDS ORDERED: COMBIGAN OPHT DR5 ML EACH EYE (11:59)
[2019-10-04] MEDS ORDERED: LISINOPRIL5 MG PO (12:00)
[2019-10-04] MEDS ORDERED: ZOLOFT25 MG PO (12:00)
[2019-10-04] MEDS ORDERED: MOBIC7.5 MG PO (12:01)
[2019-10-04] MEDS ORDERED: IPRAT-ALBUT 0.5-3 ML UPD (12:01)
[2019-10-04] MEDS ORDERED: ALBUTEROL SULF8.5 GM INH (12:02)
[2019-10-04 12:40] VITALS: BP 219/90; Ht 149.9 cm; Wt 57.7 kg
[2019-10-04 12:41] LABS: BASOPHILS 0.9 % (0-2); EOSINOPHILS 4.7 % (0-7); HEMATOCRIT 37.4 % (36.0-48.0); HEMOGLOBIN 11.9 g/dL (12-16); IMMATURE GRANULOCYTES 0.5 % (0-5); LYMPHOCYTES 38.8 % (15-50); MCH 29.1 pg (26.0-34.0); MCHC 31.8 g/dL (31.0-37.0); MCV 91.4 fL (80.0-100.0); MEAN PLATELET VOLUME 10.6 fL (7.4-10.4); NEUTROPHILS 48.1 % (40-80); RBC 4.09 10x6/uL (4.00-5.40); RDW 12.4 % (11.5-14.5); WBC 10.6 10x3/uL (4.8-10.8)
[2019-10-04 12:50] LABS: CALCIUM 9.6 mg/dL (8.5-10.1); CARBON DIOXIDE 29.6 mmol/L (21.0-32.0); PLATELET COUNT 320 10x3/uL (130-400); POTASSIUM - SERUM 4.6 mmol/L (3.5-5.1)
--- NOTE | 2019-10-04 14:30 | NUR ---
PT REC'D TO ROOM 5 VIA STRETCHER FROM INDUCTION HEAT TREATER. MONITORS ESTAB. PT DROWSY. SEE RIVET HOLE PUNCHER. ALARMS ON AND C/L IN REACH.
--- NOTE | 2019-10-04 14:45 | NUR ---
DR. COLLADO NOTIFIED OF SBP 200S, NEW ORDER REC'D. PT CALM AND COOPERATIVE. L GROIN SITE SOFT, C/D/I. ALARMS ON AND C/L IN REACH.
--- NOTE | 2019-10-04 14:56 | NUR ---
CLONIDINE GIVEN PER MD ORDER, NO DIFFICULTY SWALLOWING.
--- NOTE | 2019-10-04 15:05 | NUR ---
DR. COLLADO AT BS TO UPDATE PT.
--- NOTE | 2019-10-04 15:15 | NUR ---
L GROIN SITE SOFT, NO S/S BLEEDING OR HEMATOMA. PT TAKING SIPS OF WATER. ALARMS ON AND C/L IN REACH.
--- NOTE | 2019-10-04 15:40 | NUR ---
SPOKE WITH PT BROTHER PER PT REQUEST - DISCHARGE INSTRUCTIONS REVIEWED AND PLAN FOR D/C AT 1630.
--- NOTE | 2019-10-04 15:50 | NUR ---
L GROIN SITE SOFT, NO S/S BLEEDING OR HEMATOMA. HOB UP AND SANDWICH TRAY PROVIDED. ALARMS ON AND C/L IN REACH.
--- NOTE | 2019-10-04 16:15 | NUR ---
L GROIN SITE SOFT, NO S/S BLEEDING OR HEMATOMA. PIV D/C'D INTACT, DSG APPLIED. PT UP TO GET DRESSED AND GO TO BR INDEPENDENTLY.
--- NOTE | 2019-10-04 16:23 | NUR ---
ALL DISCHARGE INSTRUCTIONS REVIEWED WITH PT INCLUDING RESTRICTIONS, MEDS AND F/U APPT. PT VERBALIZES UNDERSTANDING.
--- NOTE | 2019-10-04 16:30 | NUR ---
PT D/C'D VIA WC TO PRIVATE VEHICLE WITH ALL PAPER WORK AND BELONGINGS.
== END 2019-10-04 16:30 | disposition home or self-care (01) ==
LOC: D.CATH 11:04
PROVIDERS: ATTEND Internal Medicine Interventional Cardiology
DX: I70.203 Unspecified atherosclerosis of native arteries of extremities, bilateral legs (principal); I25.2 Old myocardial infarction; I10 Essential (primary) hypertension; R06.00 Dyspnea, unspecified; E78.5 Hyperlipidemia, unspecified

== ENCOUNTER 2019-10-18 08:00 | Outpatient (CLI) | payer MEDICARE, BC ==
[2019-10-04 12:40] VITALS: BMI 25.7
[~2019-10-18 08:00] MED LIST changes: +ALBUTEROL SULF8.5 GM INH; +COMBIGAN OPHT DR5 ML EACH EYE; +FLOVENT HFA 11012 GM INH; +LISINOPRIL5 MG PO; +MOBIC7.5 MG PO; +SINGULAIR10 MG PO; +ZOLOFT25 MG PO
[2019-10-23] MEDS ORDERED: BENADRYL25 MG PO (09:43)
--- NOTE | 2019-10-23 10:37 | NUR ---
SHERMAN NOTE: BP 229/92 MINERVA, 221/83 LAS, P70 R24 [id number]. PATIENT DENIES ANY CHEST PAIN OR OTHER SYMPTOMS. SKIN WARM,DRY,PINK. DR. LEWIS INFORMED OF BP. RECHECK BP 230/83 MINERVA. 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 DR. CASAREZ'S NURSE, MAC, INFORMED OF ABOVE READINGS. STATES SHE WILL INFORM DR. CASAREZ & TO PROCEED WITH PREOP TESTING IN ANCILLARY DEPARTMENTS. DR. LEWIS HERE TO SEE PATIENT & AGREES WITH ABOVE. PATIENT INSTRUCTED TO INFORM DR. CASAREZ IF SHE HAS ANY QUESTIONS OR NEW SYMPTOMS. COPY OF OFFICE INSTRUCTION SHEET GIVEN TO PATIENT.
[2019-10-23 12:04] LABS: INR 0.97 (0.85-1.17); PROTIME 12.8 SECONDS (11.6-15.0)
[2019-10-23 12:05] LABS: APTT 30.9 SECONDS (22.8-39.4)
[2019-10-23 12:09] LABS: ALBUMIN 4.2 g/dL (3.4-5.0); ANION GAP 11.8 mmol/L (8-16); BILIRUBIN - TOTAL 0.29 mg/dL (0.2-1.3); CALCIUM 10.1 mg/dL (8.5-10.1); CARBON DIOXIDE 27.3 mmol/L (21.0-32.0); CREATININE - SERUM 0.9 mg/dL (0.6-1.3); POTASSIUM - SERUM 4.1 mmol/L (3.5-5.1); PROTEIN - SERUM 8.4 g/dL (6.4-8.2)
[2019-10-23 12:17] LABS: BACTERIA MANY /hpf (NEGATIVE); BILIRUBIN NEGATIVE (NEGATIVE); EPITHELIAL CELLS OCC /hpf (0-5); GLUCOSE NEGATIVE (NEGATIVE); KETONE NEGATIVE (NEGATIVE); NITRITE POSITIVE (NEGATIVE); RED CELLS - URINE OCC /hpf (0-5); UROBILINOGEN NORMAL (NORMAL)
[2019-10-23 12:19] LABS: BASOPHILS 0.5 % (0-2); EOSINOPHILS 4.6 % (0-7); HEMATOCRIT 40.1 % (36.0-48.0); HEMOGLOBIN 12.9 g/dL (12-16); IMMATURE GRANULOCYTES 0.6 % (0-5); LYMPHOCYTES 31.4 % (15-50); MCH 29.5 pg (26.0-34.0); MCHC 32.2 g/dL (31.0-37.0); MCV 91.6 fL (80.0-100.0); MEAN PLATELET VOLUME 10.8 fL (7.4-10.4); MONOCYTES 6.8 % (2-11); NEUTROPHILS 56.1 % (40-80); PLATELET COUNT 360 10x3/uL (130-400); RBC 4.38 10x6/uL (4.00-5.40); RDW 12.4 % (11.5-14.5); WBC 13.3 10x3/uL (4.8-10.8)
== END 2019-10-18 08:01 | disposition home or self-care (01) ==
LOC: D.PAN 08:00 → D.SDCHOLD 10-25 07:30 → EDSTATUS 10-25 07:30 → D.SDCHOLD 10-25 14:00
PROVIDERS: ATTEND Thoracic Surgery (Cardiothoracic Vascular Surgery)
DX: I73.9 Peripheral vascular disease, unspecified (principal)